=== PATIENT | male | born 1940 | race Caucasian/White ===

== ENCOUNTER 2021-02-19 23:19 | Emergency (ER) | payer MEDICARE, OTHER, SELFPAY ==
[2021-02-19 23:27] VITALS: PULSE 85; RESP 16; TEMP 36.6; O2SAT 97
--- NOTE | 2021-02-19 23:41 | ED_ITS ---
HPI - Male Genitourinary General: Chief complaint: Urogenital-Male Stated complaint: urinating blood Time Seen by Provider: 02/19/21 23:30 History of Present Illness: HPI Narrative: Patient is a 80-year-old male comes to the ED with hematuria. Patient noticed the blood approximately 2 hours prior to arrival here in the ED. Patient has a sat down and had a bowel movement when he got up he noticed that there was some blood in toilet. He was not sure where the blood was coming from but he has never had blood in his stool or urine before. About 45 minutes after his bowel movement he went to urinate. He said his urine stream was clear yellow color. Said after he was finished urinating his penis started dripping some blood. It lasted for several minutes and then stopped. He then came to the ED to get evaluated. He denies any injury or trauma or lesion to penis. He has never had this happen before. Denies any dysuria, abdominal pain, penile pain, abdominal pain, nausea/vomiting, fever or chills. Denies any recent Hudson catheter use. Denies being on any blood thinners. Denies any urinary urgency, urinary hesitancy, urinary dribbling, urinary frequency, change in stream or any pain or difficulty with urination. Patient lives in [place] and is here visiting [place]. Within the last couple months a lesion was found on the patient's lungs and they did a biopsy a couple weeks ago. They also have done a full body scans on patient to check for any metastatic spread. He said he will be starting his first round of radiation treatment within the next couple months. Associated symptoms: Reports hematuria; Deny dysuria, nausea or vomiting Review of Systems Const: Denies: fever(s), chills or fatigue Eyes: Denies: change in vision or eye discomfort ENMT: Denies: throat pain, odynophagia, nasal discharge or nasal congestion Card: Denies: chest pain, palpitations, edema, swelling of feet/ankles, dyspnea on exertion or orthopnea Resp: Denies: dyspnea, productive cough or non-productive cough GI: Denies: abdominal pain, nausea, vomiting, diarrhea, constipation or hematochezia : Reports: hematuria; Denies: flank pain, difficulty urinating, dysuria, urinary frequency, urinary urgency, urinary hesitancy, urinary dribbling, difficulty starting urination, change in urine stream, genital pain or genital lesions Musc: Denies: neck pain, back pain or extremity swelling Skin/Breast: Denies: rash or new lesions Neuro: Denies: headache(s), numbness in extremities or weakness in extremities Physical Exam Const: COMMON NORMALS: no acute distress, patient oriented x3, healthy appearing and alert GENERAL APPEARANCE: cooperative and comfortable HENMT: COMMON NORMALS: normocephalic HEAD & SCALP: normocephalic MOUTH: Normal oral and palatal mucosa present THROAT: posterior oropharynx normal and uvula midline Neck/C-Spine: COMMON NORMALS: supple GENERAL: Yes normal visual inspection Resp: COMMON NORMALS: normal respiratory effort, No retractions, No use of accessory muscles and clear to auscultation bilaterally AUSCULTATION: clear to auscultation bilaterally Cardio: COMMON NORMALS: regular rate, regular rhythm, S1 normal heart sound present, S2 normal heart sound present, No gallops present (Cardio), No clicks present (Cardio), No murmurs present (Cardio) and Peripheral pulses 2+ throughout RATE: regular rate RHYTHM: regular rhythm HEART SOUNDS: S1 normal heart sound present and S2 normal heart sound present PERIPHERAL PULSES: Peripheral pulses 2+ throughout GI: COMMON NORMALS: Normal to inspection, nondistended, normoactive bowel sounds present, Soft to palpation, non-tender and no masses PALPATION: Yes Soft to palpation : COMMON NORMALS: Yes no CVA tenderness BLADDER/KIDNEY EXAM: Yes no CVA tenderness MALE GROIN/PERINEUM EXAM: No Genital lesions present PENIS: normal penis, circumcised, not erythematous, no swelling and No Genital lesions present MEATUS: meatus normal, no meatla discharge and Blood at meatus present (Small drop of dark red blood on the inside of meatus. No active bleeding) SCROTUM: Yes testes descended bilaterally TESTES: Yes testicular lie normal OTHER: No tenderness to palpation of the penis. Back/Pelvis: COMMON NORMALS: no CVA tenderness Extremity: COMMON NORMALS: normal to inspection Neuro: COMMON NORMALS: patient oriented x3 and moves all extremities SENSORIUM/ORIENTATION: Yes alert Skin: GENERAL SKIN EXAM: dry skin Course Reevaluation(s): Reevaluation #1: When patient urinated here in the ED to give us urine sample. Patient said he did not have any visible bleeding from the meatus like he had the past 2 times he urinated. Still denies any pain or any other symptoms. Time: 00:38 Vital Signs: Vital signs: Vital Signs Temperature 97.8 F 02/19/21 23:27 Pulse Rate 85 02/19/21 23:27 Respiratory Rate 16 02/19/21 23:27 Pulse Oximetry 97 02/19/21 23:27 MDM - Male MDM Narrative: Medical decision making narrative: Patient is a 80-year-old male comes to the ED with bleeding from meatus of penis after urinating. Bleeding described as dripping from his meatus and it lasted for couple minutes and then resolved. He then went and urinated again and the same thing happened so he decided to come here to the ED. He denies any other symptoms such as fever, chills, abdominal pain, nausea/vomiting, dysuria, genital lesions, change in urine stream, difficulty starting urine stream. Patient is completely asymptomatic. Vitals are stable. he appears nontoxic in no acute distress or pain. His abdomen is soft and nontender to palpation. Exam of genitals showed no tenderness to palpation, no lesions seen. No swelling or erythema at around the meatus. Patient did appear to have a small drop of dark red blood just inside the meatus. No active bleeding noted. Patient says that after he urinated here in the ED to give us our urinalysis sample he did not have any bleeding from his meatus like he did the past 2 times he urinated. CBC, CMP were unremarkable. UA did show blood but no other signs of infection noted. Since patient has no symptoms and bleeding has resolved. He is stable for discharge home and was told to follow-up with his primary care doctor in [place] when he gets back in town next week. He was given strict return to ED precautions and told him of any change in symptoms or if he starts getting any genital pain, dysuria or trouble urinating he can return to the ED immediately for reevaluation. Patient understood and agree with plan. Patient is from [place] and is down here visiting. He was recently diagnosed with lung cancer and they have done full body scan and lung biopsy on patient and are going to be starting his radiation treatment within the next couple months. denies any history of prostate problems. Lab Data: Attestation: I reviewed the patient's lab results. Labs: Lab Results 02/19/21 02/19/21 02/19/21 23:55 23:55 23:55 WBC 5.8 10^3/uL 10^3/ uL (4.0-10.0) RBC 4.18 10^6/uL 10^6 /uL (4.1-5.3) Hgb 12.2 g/dL g/dL (11.7-16.6) Hct 38.8 % L % (42.0-52.0) MCV 92.8 fl fl (80-94) MCH 29.2 pg pg (28.0-34.0) MCHC 31.4 g/dL g/dL (30.0-36.0) RDW 14.9 % % (12.1-15.1) Plt Count 253 10^3/cmm 10^3 /cmm (130-400) MPV 11.1 fL H fL (7.4-10.4) Neut % (Auto) 47.0 % % Lymph % (Auto) 33.2 % % [place] % (Auto) 11.6 % % Eos % (Auto) 7.3 % % Baso % (Auto) 0.7 % % Neut # (Auto) 2.72 10^3/uL 10^3 /uL (1.8-7.7) Lymph # (Auto) 1.9 10^3/uL 10^3/ uL (0.8-4.8) [place] # (Auto) 0.7 10^3/uL 10^3/ uL (0.2-0.9) Eos # (Auto) 0.4 10^3/uL 10^3/ uL (0.0-0.8) Baso # (Auto) 0.0 10^3/uL 10^3/ uL (0.0-0.1) Nucleated RBC % (a uto) 0 % % Nucleated RBCs # 0.0 /100WBC /100W BC PT 12.20 SECONDS SEC ONDS (12.1-14.9) INR 0.88 (0.8-1.2) Sodium 141 mmol/L mmol/L (136-145) Potassium 4.4 mmol/L mmol/L (3.5-5.1) Chloride 107 mmol/L mmol/L (98-107) Carbon Dioxide 20 mmol/L L mmol/ L (22-29) Anion Gap 18.4 (5-19) BUN 25 mg/dL H mg/dL (8-23) Creatinine 1.1 mg/dL mg/dL (0.7-1.2) GFR Calculation Not Reportable Glucose 93 mg/dL mg/dL (65-115) Calculated Osmolal ity 296 mOsm/kg H mOs m/kg (285-295) Calcium 9.0 mg/dL mg/dL (8.5-10.5) Total Bilirubin 0.2 mg/dL mg/dL (0.15-1.2) AST 18 U/L U/L (0-40) ALT 14 U/L U/L (0-41) Alkaline Phosphata se 62 IU/L IU/L (40-130) Total Protein 7.0 g/dL g/dL (6.6-8.7) Albumin 4.2 g/dL g/dL (3.5-5.2) Globulin 2.8 g/dL g/dL (1.3-4.6) Urine Color Urine Appearance Urine pH Ur Specific Gravit y Urine Protein Urine Glucose (UA) Urine Ketones Urine Blood Urine Nitrate Urine Bilirubin Urine Urobilinogen Ur Leukocyte Madeline ase Urine RBC Urine WBC Ur Squamous Epith Cells Amorphous Sediment Urine Bacteria 02/20/21 00:15 WBC RBC Hgb Hct MCV MCH MCHC RDW Plt Count MPV Neut % (Auto) Lymph % (Auto) [place] % (Auto) Eos % (Auto) Baso % (Auto) Neut # (Auto) Lymph # (Auto) [place] # (Auto) Eos # (Auto) Baso # (Auto) Nucleated RBC % (a uto) Nucleated RBCs # PT INR Sodium Potassium Chloride Carbon Dioxide Anion Gap BUN Creatinine GFR Calculation Glucose Calculated Osmolal ity Calcium Total Bilirubin AST ALT Alkaline Phosphata se Total Protein Albumin Globulin Urine Color Yellow (Yellow) Urine Appearance Hazy A (CLEAR) Urine pH 5 (5-7) Ur Specific Gravit y 1.015 (1.005-1.030) Urine Protein Neg (Negative) Urine Glucose (UA) Norm (Normal) Urine Ketones Negative (Negative) Urine Blood 3+ H (Negative) Urine Nitrate Negative (Negative) Urine Bilirubin Neg (Negative) Urine Urobilinogen Neg mg/dL mg/dL (Negative) Ur Leukocyte Madeline ase Negative (Negative) Urine RBC >100 /hpf H /hpf (0-2) Urine WBC 0-4 /hpf H /hpf (0-5) Ur Squamous Epith Cells 0-4 /hpf H /hpf (0-5) Amorphous Sediment Not Reportable Urine Bacteria None /hpf /hpf (NONE) Discharge Plan Discharge Patient Disposition: Home Clinical Impression: Hematuria Qualifiers: Hematuria type: asymptomatic microscopic Qualified Code(s): R31.21 - Asymptomatic microscopic hematuria Condition: Stable Discharge Orders: Discharge ED (Routine); Ordered 02/20/21 Ordered By: Miquel Garcia Discharge Diet: Regular Discharge Activity: Resume usual activity Patient Instructions: Hematuria (ED) Activity Restrictions/Additional Instructions: Follow-up with your PCP as soon as you get back to [place] early next week. Continue taking all previously prescribed home medications. Return to the emergency department if you start having worsening symptoms, or start developing genital pain, abdominal pain, pain when you urinate, nausea/vomiting, fevers. Please read and understand discharge instructions. Thank you for choosing [facility] for your healthcare needs today. Please realize this is an emergency room and that we are providing you with a medical screening exam and this may not be complete and all inclusive of all the testing and or work up that you may need to determine your ailment or severity of your illness. It is very important that you follow up as instructed or that you return to the Emergency Department should you have concerns or if your condition changes or worsens in any way. Coding Level of Care Code ED Vulcanizing Machine Operator for Mari Irwin Exam Comprehensive
[2021-02-20] VITALS: BP 156/82; PULSE 64; RESP 18; O2SAT 98
[2021-02-20 00:30] LABS: Basophils % 0.7 %; Eosinophils # 0.4 10^3/uL (0.0-0.8); Eosinophils % 7.3 %; Hematocrit 38.8 % (42.0-52.0); Hemoglobin 12.2 g/dL (11.7-16.6); Lymphocytes # 1.9 10^3/uL (0.8-4.8); Lymphocytes % 33.2 %; Mean Corpuscular HGB Conc 31.4 g/dL (30.0-36.0); Mean Corpuscular Hemoglobin 29.2 pg (28.0-34.0); Mean Corpuscular Volume 92.8 fl (80-94); Mean Platelet Volume 11.1 fL (7.4-10.4); Monocytes # 0.7 10^3/uL (0.2-0.9); Monocytes % 11.6 %; Neutrophils # 2.72 10^3/uL (1.8-7.7); Nucleated Red Blood Cells % 0 %; Platelet Count 253 10^3/cmm (130-400); Red Blood Count 4.18 10^6/uL (4.1-5.3); Red Cell Distribution Width 14.9 % (12.1-15.1); White Blood Count 5.8 10^3/uL (4.0-10.0)
[2021-02-20 00:38] LABS: Alanine Aminotransferase 14 U/L (0-41); Albumin Level 4.2 g/dL (3.5-5.2); Alkaline Phosphatase 62 IU/L (40-130); Anion Gap 18.4 (5-19); Aspartate Amino Transferase 18 U/L (0-40); Blood Urea Nitrogen 25 mg/dL (8-23); Carbon Dioxide 20 mmol/L (22-29); Chloride 107 mmol/L (98-107); Globulin 2.8 g/dL (1.3-4.6); Glucose 93 mg/dL (65-115); Osmolality Calculated 296 mOsm/kg (285-295); Potassium 4.4 mmol/L (3.5-5.1); Sodium 141 mmol/L (136-145); Total Bilirubin 0.2 mg/dL (0.15-1.2)
[2021-02-20 00:50] LABS: Add Urine Culture? Yes; Add Urine Microscopic? YES; Bilirubin Urine Neg (Negative); Blood Urine 3+ (Negative); Glucose Urine UA Norm (Normal); Ketones Urine Negative (Negative); Leukocyte Esterase Urine Negative (Negative); Nitrate Urine Negative (Negative); Protein Urine Neg (Negative); RBC Urine >100 /hpf (0-2); Specific Gravity, Urine 1.015 (1.005-1.030); Squamous Epithelial Cell Urine 0-4 /hpf (0-5); Urine Appearance Hazy (CLEAR); Urine Color Yellow (Yellow); Urobilinogen Urine Neg (Negative); WBC Urine 0-4 /hpf (0-5); pH Urine 5 (5-7)
[2021-02-20 00:59] VITALS: BP 142/86; PULSE 74; RESP 18; O2SAT 97
[2021-02-20 01:01] LABS: INR 0.88 (0.8-1.2)
[2021-02-20 01:37] VITALS: BP 142/86; PULSE 74; RESP 18; O2SAT 97
== END 2021-02-20 01:25 | disposition home or self-care (01) ==
PROVIDERS: Emergency Medicine; Emergency Provider Physician Assistant
DX: R31.21 Asymptomatic microscopic hematuria (principal)
CPT/HCPCS: 80053; 81001; 85025; 85610; 87086; 99283